=== PATIENT | female | born 1970 | race Two or more races ===

== ENCOUNTER 2020-03-18 10:00 | Inpatient (IN) | payer OTHER ==
[~2020-03-18] VITALS: Ht 167.6 cm; Wt 77.6 kg
[2020-03-18] MEDS ORDERED: TRI SPRINTEC PO (14:27)
[2020-03-18] MEDS ORDERED: SLOW FE142 MG PO (14:28)
[2020-03-25] MEDS ORDERED: TRI-SPRINTEC T1 EACH PO (08:02)
== END 2020-03-28 08:51 | DRG 743 ==
LOC: ADM 10:00 → EDSTATUS 10:30 → ADM 10:30 → O/R 03-25 04:50 → OB/GYN 03-25 07:00
PROVIDERS: ADMIT Specialist; ATTEND Specialist
PROC: 0UT70ZZ Resection of Bilateral Fallopian Tubes, Open Approach (ICD-10-PCS; 2020-03-25)
PROC: 0UT20ZZ Resection of Bilateral Ovaries, Open Approach (ICD-10-PCS; 2020-03-25)
PROC: 0UT90ZZ Resection of Uterus, Open Approach (ICD-10-PCS; principal; 2020-03-25 07:00)
DX: D25.1 Intramural leiomyoma of uterus (principal); D25.0 Submucous leiomyoma of uterus; D25.2 Subserosal leiomyoma of uterus; N72 Inflammatory disease of cervix uteri